=== PATIENT | female | born 1995 | race Caucasian/White ===

== ENCOUNTER 2017-05-28 11:47 | Observation (INO) | payer MEDICAID ==
[~2017-05-28] VITALS: Ht 154.9 cm; Wt 72.6 kg
[2017-05-28] MEDS ORDERED: PREN1TAB78 PO (12:58)
== END 2017-05-28 13:15 | disposition home or self-care (01) ==
LOC: L&D 11:47
PROVIDERS: ADMIT Obstetrics & Gynecology; ATTEND Obstetrics & Gynecology
DX: O26.893 Other specified pregnancy related conditions, third trimester (principal); R10.9 Unspecified abdominal pain; Z3A.36 36 weeks gestation of pregnancy
CPT/HCPCS: 99281; G0378

== ENCOUNTER 2017-06-11 07:22 | Inpatient (IN) | payer MEDICAID ==
[~2017-06-11] VITALS: Ht 157.5 cm; Wt 54.4 kg
[~2017-06-11 07:22] MED LIST: PREN1TAB78 PO
[2017-06-11] MEDS ORDERED: DEXT 5%/LR + PITOCIN 20UNITS/L 1,000 ML IV SCH ×2 (07:29→11:03)
[2017-06-11] MEDS ORDERED: METHYLERGONOVINE MALEATE 0.2 MG/ML IM PRN (07:30)
[2017-06-11] MEDS ORDERED: LIDOCAINE HCL/PF 1% 10 MG/ML 5ML VIAL IJ SCH (07:30)
[2017-06-11] MEDS ORDERED: CARBOPROST TROMETHAMINE 250 MCG/ML AMPUL IM PRN (07:30)
[2017-06-11] MEDS ORDERED: NALOXONE HCL 0.4 MG/ML 1ML VIAL IM PRN (07:30)
[2017-06-11] MEDS ORDERED: BUTORPHANOL TARTRATE 2 MG/ML VIAL IV PRN (07:30)
[2017-06-11] MEDS ORDERED: PENICILLIN G POTASSIUM 5 MMU in DEXT 5% WATER 100 ML IV SCH (07:30)
[2017-06-11] MEDS ORDERED: PENICILLIN G POTASSIUM 5 MMU in SODIUM CHLORIDE 0.9% 100 ML IV SCH (07:49)
[2017-06-11] MEDS ORDERED: TERBUTALINE SULFATE 1MG/ML VIAL SUBCUT PRN (08:00)
[2017-06-11] MEDS: LACTATED RINGERS 1,000 ML IV SCH ×2 (08:06→08:38)
[2017-06-11 08:30] LABS: PARTIAL THROMBOPLASTIN TIME 33.6 sec (23.4-31.0); PROTHROMBIN TIME 10.4 sec (9.4-11.6)
[2017-06-11 08:33] LABS: BASOPHILS % 0.5 % (0.0-2.0); CLARITY URINE CLEAR (CLEAR); COLOR URINE YELLOW (YELLOW); HEMATOCRIT. 35.9 % (36.0-48.0); HEMOGLOBIN. 12.1 g/dL (12.0-16.0); KETONES URINE NEGATIVE (NEGATIVE); LEUKOCYTE ESTERASE URINE 1+ (NEGATIVE); LYMPHOCYTES % 16.4 % (20.0-50.0); MEAN CORPUSCULAR HEMOGLOBIN 27.7 pg (28.0-32.0); MEAN CORPUSCULAR VOLUME 82.7 fL (81.0-99.0); MEAN PLATELET VOLUME 9.4 fl (7.4-10.4); MONOCYTES % 8.3 % (2.0-8.0); NEUTROPHILS % 73.8 % (40.0-76.0); NITRITE URINE NEGATIVE (NEGATIVE); OCCULT BLOOD URINE 2+ (NEGATIVE); PLATELET 267 x1000/uL (130-400); PROTEIN URINE NEGATIVE (NEGATIVE); RED BLOOD CELL COUNT 4.35 mill/uL (4.2-5.4); RED CELL DISTRIBUTION WIDTH 14.3 % (11.6-14.6); SPECIFIC GRAVITY URINE 1.018 (1.005-1.030)
[2017-06-11 08:47] LABS: *COCAINE SCREEN URINE NEGATIVE (NEGATIVE)
[2017-06-11 08:48] LABS: *BENZODIAZEPINES SCREEN URINE NEGATIVE (NEGATIVE); CANNABINOID URINE SCREEN NEGATIVE (NEGATIVE); METHADONE URINE SCREEN NEGATIVE (NEGATIVE); OPIATES URINE SCREEN NEGATIVE (NEGATIVE); PHENCYCLIDINE URINE SCREEN NEGATIVE (NEGATIVE)
[2017-06-11 08:49] LABS: *AMPHETAMINES SCREEN URINE NEGATIVE (NEGATIVE); *BARBITURATES SCREEN URINE NEGATIVE (NEGATIVE)
[2017-06-11] MEDS: MAGNESIUM/ALUMINUM HYDROXIDE/SIMETHICONE 30ML UDC PO PRN (09:54)
[2017-06-11 10:40] LABS: HEPATITIS B SURFACE ANTIGEN NEGATIVE; RUBELLA IGG 345.8 IU/mL (4.99-10)
[2017-06-11] MEDS ORDERED: INFLUENZA VIRUS VACCINE 0.5ML SYR IM ONE (11:15)
[2017-06-11] MEDS ORDERED: HEMORRHOIDAL SUPP PR PRN (11:15)
[2017-06-11] MEDS ORDERED: DIPHENHYDRAMINE 25MG CAPSULE PO PRN (11:15)
[2017-06-11] MEDS ORDERED: ACETAMINOPHEN WITH CODEINE 300/30MG TABLET PO PRN ×2 (11:15)
[2017-06-11] MEDS ORDERED: GLYCERIN/WITCH HAZEL LEAF MEDICATED PAD TOP PRN (11:15)
[2017-06-11] MEDS ORDERED: IBUPROFEN 400MG TABLET PO PRN (11:15)
[2017-06-11] MEDS ORDERED: TETANUS, DIPHTHERIA, PERTUSSIS VAC/PF 0.5ML (>7YR OLD) IM ONE (11:15)
[2017-06-11] MEDS ORDERED: BENZOCAINE/LANOLIN/ALOE VERA SPRAY TOP PRN (11:15)
[2017-06-11] MEDS ORDERED: LANOLIN OINT 0.25 GM TUBE TOP PRN (11:15)
[2017-06-11] MEDS ORDERED: PENICILLIN G POTASSIUM 2.5 MMU in DEXTROSE 5% WATER 50 ML IV SCH (12:00)
[2017-06-11 12:45] VITALS: BP 117/69
[2017-06-11 13:10] VITALS: BP 112/71
[2017-06-11 14:45] VITALS: BP 113/73
[2017-06-11 15:30] VITALS: BP 112/73
[2017-06-11 19:25] VITALS: BP 106/71
[2017-06-11] MEDS: DOCUSATE SODIUM 100MG CAPSULE PO SCH (21:03)
[2017-06-11] MEDS: SIMETHICONE 80MG TABLET CHEW PO SCH (21:03)
[2017-06-12] VITALS: BP 116/70
[2017-06-12 06:00] VITALS: BP 112/70
[2017-06-12 08:20] VITALS: BP 111/72
[2017-06-12] MEDS: PRENATAL VIT/FE FUMARATE/FA TABLET PO SCH (09:38)
[2017-06-12] MEDS: SIMETHICONE 80MG TABLET CHEW PO SCH ×4 (09:39→20:59)
[2017-06-12] MEDS: MAGNESIUM/ALUMINUM HYDROXIDE/SIMETHICONE 30ML UDC PO PRN (13:23)
[2017-06-12] MEDS: FERROUS SULFATE 325MG TABLET PO SCH ×3 (13:24→20:59)
[2017-06-12 16:08] VITALS: BP 103/66
[2017-06-12 19:45] VITALS: BP 106/68
[2017-06-12] MEDS: DOCUSATE SODIUM 100MG CAPSULE PO SCH (20:59)
[2017-06-13 04:00] VITALS: BP 110/62
[2017-06-13] MEDS: PRENATAL VIT/FE FUMARATE/FA TABLET PO SCH (08:43)
[2017-06-13] MEDS: SIMETHICONE 80MG TABLET CHEW PO SCH (08:44)
[2017-06-13] MEDS: FERROUS SULFATE 325MG TABLET PO SCH (08:44)
[2017-06-13 09:07] VITALS: BP 103/68
== END 2017-06-13 11:25 | disposition home or self-care (01) | DRG 560 ==
LOC: OBSVTOIN 07:22 → L&D 07:22 → 7EST PP/OB 13:04
PROVIDERS: ADMIT Obstetrics & Gynecology; ATTEND Obstetrics & Gynecology
PROC: 10E0XZZ Delivery of Products of Conception, External Approach (ICD-10-PCS; 2017-06-11)
PROC: 0HQ9XZZ Repair Perineum Skin, External Approach (ICD-10-PCS; principal; 2017-06-11 10:37)
DX: O70.0 First degree perineal laceration during delivery (principal); Z37.0 Single live birth; Z3A.38 38 weeks gestation of pregnancy
CPT/HCPCS: 36415; 71250; 80305; 81003; 85025; 85610; 85730; 86592; 86703; 86762; 86850; 86900; 87340; 90715; 93005; 99281; J2540; J2590; J3490; J7050; J7060; J7120